=== PATIENT | female | born 2000 | race Caucasian/White ===

== ENCOUNTER 2023-01-25 00:04 | Emergency (ER) | payer OTHER ==
[~2023-01-25] VITALS: Ht 160 cm; Wt 69.1 kg
[2023-01-25 00:33] LABS: VENOUS BASE EXCESS -3.2 (-2.0-2.0); VENOUS HCO3 22.8 MEQ/L (23.0-27.0); VENOUS O2 SATURATION 94.1 % (60.0-80.0); VENOUS PARTIAL PRESSURE O2 76.9 mmHg (30.0-50.0); VENOUS PH 7.332 UNITS (7.330-7.430); VENOUS STANDARD HCO3 21.8 MEQ/L; VENOUS TOTAL CO2 24.1 MEQ/L (24.0-28.0)
[2023-01-25 00:55] LABS: BASO # 0.1 10^3/uL (0.0-0.2); BASO % 0.6 % (0.0-1.0); EOS # 0.1 10^3/uL (0.0-0.5); HEMATOCRIT 42.4 % (36.0-47.0); LYMPH % 29.6 % (24.0-44.0); MEAN CORPUSCULAR HEMOGLOBIN 30.9 pg (27.0-33.0); MEAN CORPUSCULAR VOLUME 93.6 fl (80.0-96.0); MONO # 0.8 10^3/uL (0.0-0.8); NEUTROPHILS # 6.1 10^3/uL (1.5-8.5); NEUTROPHILS % 59.7 % (36.0-66.0); PLATELET COUNT, AUTOMATED 327 10^3/uL (150-450); RED BLOOD COUNT 4.53 10^6/uL (4.00-5.40); WHITE BLOOD COUNT 10.2 10^3/uL (4.0-10.0)
[2023-01-25 01:12] LABS: OSMOLALITY SERUM 366 MOSM/KG (275-295)
[2023-01-25 01:13] LABS: RSV AMPLIFICATION NEGATIVE (NEGATIVE)
[2023-01-25 01:15] LABS: ACETAMINOPHEN LEVEL < 2.0 UG/ML (10.0-20.0)
[2023-01-25 01:16] LABS: ALBUMIN 4.1 G/DL (3.2-5.2); ALKALINE PHOSPHATASE 81 U/L (46-116); ALT/SGPT 13 U/L (7.0-40); AST/SGOT 25 U/L (<34); BILIRUBIN,DIRECT < 0.1 MG/DL (<0.4); BILIRUBIN,TOTAL 0.3 MG/DL (0.3-1.2); BLOOD UREA NITROGEN 9 MG/DL (9-23); CALCIUM LEVEL 8.8 MG/DL (8.5-10.1); CARBON DIOXIDE LEVEL 24 MMOL/L (20-31); CHLORIDE LEVEL 110 MMOL/L (98-107); CREATININE FOR GFR 0.74 MG/DL (0.55-1.30); GLOMERULAR FILTRATION RATE > 60.0 (>60); GLUCOSE, FASTING 108 MG/DL (60-100); SALICYLATE LEVEL < 3.0 MG/DL (<30); SODIUM LEVEL 143 MMOL/L (136-145); TOTAL PROTEIN 7.3 G/DL (5.7-8.2)
[2023-01-25 01:18] LABS: THYROID STIMULATING HORMONE 1.621 uIU/ML (0.55-4.78)
[2023-01-25 01:22] LABS: CPK CREATINE PHOSPHOKINASE 125 U/L (34-145)
[2023-01-25] MEDS ORDERED: NS 1,000 ML IV ONE ×2 (01:40→04:20)
[2023-01-25 01:42] LABS: ETHYL ALCOHOL (ETHANOL) 0.281 % (0.000-0.010)
[2023-01-25 08:30] VITALS: BP 117/73
== END 2023-01-25 08:30 | disposition home or self-care (01) ==
LOC: EDBD 00:04 → M ED 00:04
DX: F10.129 Alcohol abuse with intoxication, unspecified (principal); R00.0 Tachycardia, unspecified; F10.10 Alcohol abuse, uncomplicated; Z91.010 Allergy to peanuts

== ENCOUNTER 2024-02-08 08:45 | Outpatient (CLI) | payer OTHER ==
[~2024-02-08] VITALS: Ht 152.4 cm; Wt 75.9 kg
[2024-02-08 09:07] VITALS: BP 118/69; O2SAT 97
[2024-02-08] MEDS ORDERED: BENA25CA4 PO (09:37)
[2024-02-08] MEDS ORDERED: ACET-907 PO (09:37)
[2024-02-08 11:16] VITALS: BP 114/67
[2024-02-08] MEDS ORDERED: OSEL75CA PO (12:00)
[2024-02-08] MEDS: OSELTAMIVIR PHOSPHATE 75 MG CAP (TAMIFLU) PO ONE (12:10)
== END 2024-02-08 12:15 | disposition home or self-care (01) ==
LOC: M LDO 08:45
PROVIDERS: ATTEND Advanced Practice Midwife
DX: O99.513 Diseases of the respiratory system complicating pregnancy, third trimester (principal); O34.219 Maternal care for unspecified type scar from previous cesarean delivery; O99.343 Other mental disorders complicating pregnancy, third trimester; J10.1 Influenza due to other identified influenza virus with other respiratory manifestations; F41.8 Other specified anxiety disorders; Z91.010 Allergy to peanuts; Z86.32 Personal history of gestational diabetes; Z3A.36 36 weeks gestation of pregnancy
CPT/HCPCS: 59025; 76817; 76819; 76820; 87486; 87581; 87633; 87798; G0463

== ENCOUNTER 2024-02-24 01:52 | Outpatient (CLI) | payer OTHER ==
[~2024-02-24] VITALS: Ht 152.4 cm; Wt 76.4 kg
[~2024-02-24 01:52] MED LIST: ACET-907 PO; BENA25CA4 PO; OSEL75CA PO
[2024-02-24 02:06] VITALS: BP 117/74
[2024-02-24] MEDS: LR 1,000 ML IV ONE ×2 (03:02→04:15)
[2024-02-24] MEDS: ACETAMINOPHEN 500 MG TAB PO ONE (03:02)
[2024-02-24 03:11] LABS: BASO % 0.1 % (0.0-1.0); EOS # 0.1 10^3/uL (0.0-0.5); EOS % 0.5 % (0.0-3.0); HEMOGLOBIN 11.6 g/dl (12.0-15.5); LYMPH # 1.1 10^3/uL (1.5-5.0); LYMPH % 11.2 % (24.0-44.0); MEAN CORPUSCULAR HEMOGLOBIN 31.1 pg (27.0-33.0); MEAN CORPUSCULAR HGB CONC 33.1 g/dl (32.0-36.5); MEAN CORPUSCULAR VOLUME 93.8 fl (80.0-96.0); MONO # 0.9 10^3/uL (0.0-0.8); MONO % 9.4 % (2.0-8.0); NEUTROPHILS # 7.6 10^3/uL (1.5-8.5); NEUTROPHILS % 78.2 % (36.0-66.0); PLATELET COUNT, AUTOMATED 240 10^3/uL (150-450); RED BLOOD COUNT 3.73 10^6/uL (4.00-5.40); WHITE BLOOD COUNT 9.7 10^3/uL (4.0-10.0)
[2024-02-24 03:43] LABS: ALBUMIN 2.1 G/DL (3.2-5.2); ALKALINE PHOSPHATASE 167 U/L (46-116); ALT/SGPT 22 U/L (7.0-40); AST/SGOT 25 U/L (<34); BILIRUBIN,TOTAL 0.5 MG/DL (0.3-1.2); BLOOD UREA NITROGEN 10 MG/DL (9-23); CALCIUM LEVEL 8.5 MG/DL (8.5-10.1); CARBON DIOXIDE LEVEL 22 MMOL/L (20-31); CHLORIDE LEVEL 106 MMOL/L (98-107); CREATININE FOR GFR 0.55 MG/DL (0.55-1.30); GLOMERULAR FILTRATION RATE > 60.0 (>60); GLUCOSE, FASTING 93 MG/DL (60-100); POTASSIUM SERUM 4.2 MMOL/L (3.5-5.1); SODIUM LEVEL 137 MMOL/L (136-145); TOTAL PROTEIN 5.8 G/DL (5.7-8.2)
[2024-02-24] MEDS: guaiFENesin 200 MG TAB PO ONE (04:15)
[2024-02-24 04:48] LABS: APPEARANCE, URINE CLEAR (CLEAR); BACTERIA, URINE AUTO NEGATIVE (NEGATIVE); BILIRUBIN, URINE AUTO NEGATIVE (NEGATIVE); BLOOD, URINE BLOOD NEGATIVE (NEGATIVE); COLOR, URINE YELLOW (YELLOW); GLUCOSE, URINE (UA) AUTO NEGATIVE (NEGATIVE); KETONE, URINE AUTO NEGATIVE (NEGATIVE); LEUKOCYTE ESTERASE, URINE AUTO NEGATIVE (NEGATIVE); MUCUS, URINE SMALL (NEGATIVE); NITRITE, URINE AUTO NEGATIVE (NEGATIVE); PROTEIN, URINE AUTO NEGATIVE (NEGATIVE); RBC, URINE AUTO 0 /HPF (0-3); SPECIFIC GRAVITY URINE AUTO 1.017 (1.002-1.035); SQUAMOUS EPITHELIAL CELL UR AU 2 /HPF (0-6); WBC, URINE AUTO 0 /HPF (0-3)
[2024-02-24] MEDS ORDERED: OSEL75CA PO (06:46)
[2024-02-24 08:12] LABS: FREE T4 0.93 NG/DL (0.89-1.76); THYROID STIMULATING HORMONE 1.431 uIU/ML (0.55-4.78)
== END 2024-02-24 07:00 | disposition home or self-care (01) ==
LOC: M LDO 01:52
PROVIDERS: ATTEND Obstetrics & Gynecology
DX: O99.513 Diseases of the respiratory system complicating pregnancy, third trimester (principal); J09.X2 Influenza due to identified novel influenza A virus with other respiratory manifestations; Z3A.38 38 weeks gestation of pregnancy
CPT/HCPCS: 59025; 71045; 80053; 81001; 84439; 84443; 85025; 86850; 86900; 86901; 87086; 87486; 87581; 87633; 87798; G0463